=== PATIENT | female | born 1985 | race Asian ===

== ENCOUNTER → 2017-02-12 | Outpatient (CLI) | payer BC, OTHER | LOC: HPND 08:59 | PROVIDERS: ATTEND Family Medicine | DX: O26.842 Uterine size-date discrepancy, second trimester (principal) | CPT/HCPCS: 76805 ==

== ENCOUNTER → 2017-03-06 | Outpatient (CLI) | payer BC ==
[~2017-03-06] MED LIST: METR1TAB76 PO; TERC0.4C2 VAGINAL
== END ==
LOC: HPND 07:49
PROVIDERS: ATTEND Family Medicine
DX: O28.3 Abnormal ultrasonic finding on antenatal screening of mother (principal); O35.0XX0 Maternal care for (suspected) central nervous system malformation in fetus, not applicable or unspecified
CPT/HCPCS: 76811

== ENCOUNTER → 2017-04-03 | Outpatient (CLI) | payer BC ==
[~2017-04-03] MED LIST changes: -METR1TAB76 PO; +PREN29TA PO; -TERC0.4C2 VAGINAL
== END ==
LOC: HPND 07:37
PROVIDERS: ATTEND Family Medicine
DX: O28.0 Abnormal hematological finding on antenatal screening of mother (principal); O35.0XX0 Maternal care for (suspected) central nervous system malformation in fetus, not applicable or unspecified
CPT/HCPCS: 76816; 76825; 76827; 93325

== ENCOUNTER → 2017-05-01 | Outpatient (CLI) | payer BC, OTHER | LOC: HPND 07:53 | PROVIDERS: ATTEND Family Medicine | DX: O35.0XX0 Maternal care for (suspected) central nervous system malformation in fetus, not applicable or unspecified (principal); O28.0 Abnormal hematological finding on antenatal screening of mother | CPT/HCPCS: 76816 ==

== ENCOUNTER → 2017-05-28 | Outpatient (CLI) | payer BC, OTHER | LOC: HPND 12:51 | PROVIDERS: ATTEND Family Medicine | DX: O35.0XX0 Maternal care for (suspected) central nervous system malformation in fetus, not applicable or unspecified (principal) | CPT/HCPCS: 76816 ==

== ENCOUNTER 2017-06-18 22:18 | Inpatient (IN) | payer BC, OTHER ==
[~2017-06-18] VITALS: Ht 149.9 cm; Wt 49.0 kg
[2017-06-18 22:51] VITALS: BP 162/91; PULSE 67
[2017-06-18 22:55] VITALS: BP 158/93; PULSE 67
[2017-06-18 23:00] VITALS: RESP 18
[2017-06-18 23:14] VITALS: BP 156/91; PULSE 67
[2017-06-18] MEDS ORDERED: ONDANSETRON HCL 4 MG/2 ML VIAL IV PUSH ONE (23:30)
[2017-06-18 23:31] LABS: BACTERIA, URINE RARE /hpf; BILIRUBIN, URINE NEG (NEG); BLOOD, URINE SMALL (NEG); GLUCOSE,URINE NEG (NEG); KETONE, URINE NEG (NEG); NITRITE,URINE NEG (NEG); SQUAMOUS EPITHELIAL CELL URINE 2 /hpf (0-5); URINE COLOR LIGHT-YELLOW (YELLW/STRAW); URINE LEUKOCYTE ESTERASE NEG (NEG)
[2017-06-18 23:35] VITALS: BP 152/96; PULSE 71
--- NOTE | 2017-06-18 23:36 | PD ---
HPI Chief Complaint Cramping, increased BP Date Seen: Jun 18, 2017 Time Seen: 23:20 Travel History International Travel<30 Days: No Contact w/Intl Traveler<30Days: No Known Affected Area: No History of Present Illness HPI Patient is a 32 year old at 35 weeks and 2 days who presents to OB triage complaining of cramping since 21:00 this evening. She established care with Dr. Velazco at approximately 4 months gestation. She describes the cramping as a 4/10 pain, located along her lower abdomen, radiating to the back. The pain comes and goes q4-8 min, lasting for 1-2 minutes. She also reports vaginal pressure. Patient was found to have elevated blood pressures in OB triage. She was seen in the office earlier today, where she was found to have protein in her urine. Blood pressure was within normal limits at that time. Patient admits to a mild headache. She denies vision changes, right upper quadrant pain, nausea and vomiting. Weeks Gestation: 35 Para: 0 : 1 History Past Medical History Medical History: Denies Significant Hx Obstetric History Obstetric History G1 - current , no complications Past Surgical History Narrative Surgical Dental surgery - no complications with anaesthesia Family History Family History: Negative Social History Alcohol Use: No Tobacco Use: No Substance Abuse: No Allergies-Medications (Allergen,Severity, Reaction): Coded Allergies: Penicillins (Verified Allergy, Mild, rash, 04/30/17) Sulfa (Sulfonamide Antibiotics) (Verified Allergy, Mild, rash, 04/30/17) Home Meds Active Scripts Vit-Iron Carbonyl ( Plus Iron 29-1 mg) 29 Mg Iron-1 Mg Tab, 1 TAB PO DAILY for Nutritional Supplement, #30 TAB 11 Refills Prov:Neela Velazco MD 03/28/17 Review of Systems Except as stated in HPI: all other systems reviewed are Neg Physical Exam BP 158/93, 156/91, 152/96, 161/91 Narrative GENERAL: Well-nourished, well-developed patient. SKIN: Warm and dry. HEAD: Normocephalic and atraumatic. EYES: No scleral icterus. No injection or drainage. ENT: No nasal drainage noted. Mucous membranes pink. Airway patent. NECK: Supple, trachea midline. No JVD. CARDIOVASCULAR: Regular rate and rhythm without murmurs, gallops, or rubs. RESPIRATORY: Breath sounds equal bilaterally. No accessory muscle use. Gravid to 35 weeks size GENITOURINARY: Dilatation: Closed Effacement: Thick Membranes: Intact Uterine Contractions: None FHT's: Category: 1 Baseline: 140 Variability: Moderate Decels: None EXTREMITIES: No cyanosis or edema. BACK: Nontender without obvious deformity. No CVA tenderness. NEUROLOGICAL: Awake and alert. Motor and sensory grossly within normal limits. Five out of 5 muscle strength in all muscle groups. Normal speech. Data Data Vital Signs Reviewed: Yes Orders Orders Vital Signs (Adult) .ON ADMISSION (06/18/17 23:19) ^ Labor Status (06/18/17 23:19) Heart (06/18/17:) Urinalysis - C+S If Indicated (06/18/17:) ^ Non Stress Test (06/18/17:) ^ Hydration (06/18/17:) Cbc No Diff, Includes Plts (06/18/17 23:19) Comprehensive Metabolic Panel (06/18/17:) Uric Acid (06/18/17 23:19) Ondansetron Inj (Zofran Inj) (06/18/17 23:30) Labs Laboratory Tests Test 06/18/17 23:10 MDM Plan Patient is a 32 year old at 35 weeks and 2 days who presents to OB triage complaining of cramping since 21:00 this evening. She established care with Dr. Velazco at approximately 4 months gestation. Cramping pain likely Briscoe Pierson. Hypertension with proteinuria rule out preeclampsia. * Encourage PO hydration. * UA: light yellow, clear, pH 7, protein 100, glucose negative, ketones negative , occult blood small, nitrite negative, bilirubin negative, leukocyte esterase negative, bacteria rare; culture not indicated. * Urine Random Creatine 43 * Urine Random Total Protein 235 * Protein/Creatine Ration 5.47. * CBC wnl. * CMP wnl except Alk Phos 118 and Albumin 2.7. * Uric acid wnl. * Labetalol 100mg PO BID. * Admit for observation. Start 24 hr urine collection. Order Ultrasound. Consult MFM. Discussed with OB hospitalist. Diagnosis Diagnosis: Primary Impression: Hypertension affecting Additional Impression: Proteinuria affecting Lelo Godinez MD R1 Jun 18, 2017 23:36
[2017-06-18 23:52] LABS: HEMOGLOBIN 13.5 GM/DL (11.6-15.3); MEAN CELL VOLUME 84.1 FL (80.0-100.0); MEAN CORPUSCULAR HEMOGLOBIN 29.2 PG (27.0-34.0); MEAN CORPUSCULAR HGB CONC 34.7 % (32.0-36.0); MEAN PLATELET VOLUME 10.2 FL (7.0-11.0); PLATELET COUNT 154 TH/MM3 (150-450); RED BLOOD COUNT 4.64 MIL/MM3 (4.00-5.30); RED CELL DISTRIBUTION WIDTH 14.3 % (11.6-17.2); WHITE BLOOD COUNT 6.7 TH/MM3 (4.0-11.0)
[2017-06-19] VITALS (176 sets, daily range): BP systolic 105–149; BP diastolic 63–91; PULSE 62–100; RESP 14–18; TEMP 97.6–98.1; O2SAT 95–100
[2017-06-19 00:15] LABS: ALBUMIN 2.7 GM/DL (3.4-5.0); AST (GOT) 27 U/L (15-37); BICARBONATE 22.8 MEQ/L (21.0-32.0); BLOOD UREA NITROGEN 13 MG/DL (7-18); CALCIUM 8.6 MG/DL (8.5-10.1); CHLORIDE 106 MEQ/L (98-107); CREATININE 0.68 MG/DL (0.50-1.00); GLOMERULAR FILTRATION RATE 101 ML/MIN (>89); GLUCOSE,RANDOM 83 MG/DL (74-106); SODIUM (NA) 140 MEQ/L (136-145)
[2017-06-19 00:19] LABS: ALKALINE PHOSPHATASE 118 U/L (45-117); ALT (GPT) 27 U/L (10-53); TOTAL BILIRUBIN ADULT 0.2 MG/DL (0.2-1.0); TOTAL PROTEIN 7.1 GM/DL (6.4-8.2)
[2017-06-19] MEDS: LABETALOL HCL 100 MG TAB PO SCH ×3 (00:30→21:00)
[2017-06-19] MEDS ORDERED: ACETAMINOPHEN 325 MG TAB PO PRN (01:45)
[2017-06-19] MEDS ORDERED: SODIUM CHLORIDE 0.9% FLUSH 10 ML FLUSH IV FLUSH PRN ×2 (01:45→09:45)
--- NOTE | 2017-06-19 01:55 | HHI.HP ---
History & Physical H&P HPI Chief Complaint Cramping, increased BP Date Seen in ED Triage: Jun 18, 2017 Time Seen In ED Triage: 23:20 Date Admitted: Jun 19, 2017 Travel History International Travel<30 Days: No Contact w/Intl Traveler<30Days: No Known Affected Area: No History of Present Illness HPI Patient is a 32 year old at 35 weeks and 2 days who presents to OB triage complaining of cramping since 21:00 on 06/18. She established care with Dr. Velazco at approximately 4 months gestation. She describes the cramping as a 4/10 pain, located along her lower abdomen, radiating to the back. The pain comes and goes q4-8 min, lasting for 1-2 minutes. She also reports vaginal pressure. Patient was found to have elevated blood pressures in OB triage. She was seen in the office earlier that day, where she was found to have protein in her urine. Blood pressure was within normal limits at that time. Patient admits to a mild headache. She denies vision changes, right upper quadrant pain, nausea and vomiting. Weeks Gestation: 35 Para: 0 : 1 History Past Medical History Medical History: Denies Significant Hx Obstetric History Obstetric History G1 - current , no complications Past Surgical History Narrative Surgical Dental surgery - no complications with anaesthesia Family History Family History: Negative Social History Alcohol Use: No Tobacco Use: No Substance Abuse: No Allergies-Medications (Allergen,Severity, Reaction): Coded Allergies: Penicillins (Verified Allergy, Mild, rash, 04/30/17) Sulfa (Sulfonamide Antibiotics) (Verified Allergy, Mild, rash, 04/30/17) Home Meds Active Scripts Vit-Iron Carbonyl ( Plus Iron 29-1 mg) 29 Mg Iron-1 Mg Tab, 1 TAB PO DAILY for Nutritional Supplement, #30 TAB 11 Refills Prov:Neela Velazco MD 03/28/17 Review of Systems Except as stated in HPI: all other systems reviewed are Neg Physical Exam BP 158/93, 156/91, 152/96, 161/91, 149/89, 145/91, 151/95, 112/80, 143/75, 115/ 75 Narrative GENERAL: Well-nourished, well-developed patient. SKIN: Warm and dry. HEAD: Normocephalic and atraumatic. EYES: No scleral icterus. No injection or drainage. ENT: No nasal drainage noted. Mucous membranes pink. Airway patent. NECK: Supple, trachea midline. No JVD. CARDIOVASCULAR: Regular rate and rhythm without murmurs, gallops, or rubs. RESPIRATORY: Breath sounds equal bilaterally. No accessory muscle use. Gravid to 35 weeks size GENITOURINARY: Dilatation: Closed Effacement: Thick Membranes: Intact Uterine Contractions: None FHT's: Category: 1 Baseline: 140 Variability: Moderate Decels: None EXTREMITIES: No cyanosis or edema. BACK: Nontender without obvious deformity. No CVA tenderness. NEUROLOGICAL: Awake and alert. Motor and sensory grossly within normal limits. Five out of 5 muscle strength in all muscle groups. Normal speech. MDM Plan Patient is a 32 year old at 35 weeks and 2 days who presents to OB triage complaining of cramping since 21:00 on 06/18. She established care with Dr. Velazco at approximately 4 months gestation. Cramping pain likely Sharad Pierson. Hypertension with proteinuria rule out preeclampsia. * Encourage PO hydration. * UA: light yellow, clear, pH 7, protein 100, glucose negative, ketones negative , occult blood small, nitrite negative, bilirubin negative, leukocyte esterase negative, bacteria rare; culture not indicated. * Urine Random Creatine 43 * Urine Random Total Protein 235 * Protein/Creatine Ration 5.47. * CBC wnl. * CMP wnl except Alk Phos 118 and Albumin 2.7. * Uric acid wnl. * Labetalol 100mg PO BID. * Admit for observation. Start 24 hr urine collection. Order Ultrasound. Consult MFM. Discussed with OB hospitalist. Lelo Godinez MD R1 Jun 19, 2017 01:55
[2017-06-19] MEDS: MULTIVIT/MIN/PREN/FOL AC/IRON PRENATAL TAB PO SCH ×2 (09:00→09:45)
[2017-06-19] MEDS: SODIUM CHLORIDE 0.9% FLUSH 10 ML FLUSH IV FLUSH SCH ×3 (09:00→21:00)
[2017-06-19] MEDS ORDERED: MAGNESIUM SULFATE 4 GM PREMIX 100 ML IV ONE (09:45)
[2017-06-19] MEDS ORDERED: CALCIUM GLUCONATE 10% 1 GM/10 ML VIAL IV PUSH PRN (09:45)
[2017-06-19] MEDS ORDERED: ONDANSETRON HCL 4 MG/2 ML VIAL IV PUSH PRN (10:00)
[2017-06-19] MEDS: LACTATED RINGER'S 1000 ML INJ 1,000 ML IV SCH (10:53)
[2017-06-19] MEDS: BETAMETHASONE SOD PHOS/ACETATE SUSP 30 MG/5 ML VIAL IM SCH (10:54)
[2017-06-19] MEDS: MAGNESIUM SULFATE 40 GM PREMIX 1,000 ML IV SCH (10:56)
--- NOTE | 2017-06-19 11:09 | HHI.PR ---
Addendum to Inpatient Note Addendum Reason: Additional Documentation Additional Information Patient evaluated by MFM this morning, 06/19/17. Based on US, recommendations given to start magnesium for neuroprotection, give betamethasone x2, complete 24 hour urine, and schedule for Ceserean section tomorrow 06/20/17 after second dose of steroids for breach positioning. Patient counseled and agrees with plan. PCP, Dr. Velazco, updated. 1. IUP at 35 weeks -Continue routine antepartum care -Continue vitamin -Encouraged oral hydration -Clear liquid diet 2. Preeclampsia with IUGR on ultrasound -MFM consulted -Magnesium ordered with bolus, plan for 24 hours of coverage prior to for breech positioning -Betamethasone 2 ordered -Continue 24 hour urine collection DW: Dr. Warner, Ever Simmons MD R2 Jun 19, 2017 11:09
--- NOTE | 2017-06-19 15:52 | HHI.PR ---
Addendum to Inpatient Note Addendum Reason: Additional Documentation Additional Information Consult for Juaquin, Arielle Maternal Hx: 32 y/o AF, at 35 3/7 weeks gestation with induced hypertension, cramping and proteinuria. No report of cramping or contractions. Mother denies alcohol, tobacco or drug use. Had been receiving care with Dr Velazco from [facility]. Mother admitted to [facility] on 06/18/16, secondary to elevated blood pressure and cramping. Most recent ultrasound on 06/19/16 confirmed intrauterine at 35 3/7 weeks gestation with EDC of 07/21/17. Estimated weight of 2052 grams. No maternal temperature noted since admission. Maternal Labs: A+, Rubella immune, RPR NR, GBS unknown, Hepatitis B negative, HIV NR. Maternal Meds: Magnesium Sulfate, PNV, [id number], Betamethasone on 06/19/16 at ~ 10:45am. Social: Marital status: single; Resides locally Family Hx: Mother reports no genetic or inherited conditions. Maternal Management: Magnesium sulfate for neuro protection. Betamethasone x 2 doses C/section secondary to breech presentation [facility] consult Substance Abuse: Denies Discussion: Nurse Practitioner met with mother and close friend regarding the lilekely delivery at 35 4/7weeks gestation secondary to elevated blood pressure, proteinuria and breech presentation. This consultation included generalized care of the baby in the NICU, common problems and complications if delivered at this time. The mother states that she was told by her DrDaisy that she will have a c/section sometime tomorrow after 2nd dose of Betamethasone was given. MOTOR VEHICLE ESCORT DRIVER discussed with mother the possible initial resuscitation and stabilization of the infant in the delivery room. Also included in this review the admission process to the NICU, including possible procedures such as intubation and placement of peripheral IV. Additionally, there was a discussion of the disease processes that may affect an infant of this gestation, including but not limited to respiratory distress, infection and nutritional concerns. Discussion detailed various forms of respiratory support for immature lungs including use of surfactant, nasal cannula and CPAP. Discussion focused on CPAP support as most commonly needed for an of this gestation. There was a review of nutritional support challenges including IV and gavage feeding. There was discussion regarding possible feeding difficulties. Breast feeding and early breast milk pumping was strongly encouraged. Explained that infant is at risk for hyperbilirubinemia and may require treatment with phototherapy. Support systems in place at [facility] were reviewed and included , Case Management and Ministry which the family may utilize. Expected discharge would likely occur closer to the due date if the has an uncomplicated hospitalization. Greater than 50% of the consultation time was spent with the patient. Patty Cole Jun 19, 2017 15:52
[2017-06-20] VITALS (192 sets, daily range): BP systolic 110–135; BP diastolic 50–90; PULSE 73–100; RESP 14–18; TEMP 97.6–98.8; O2SAT 95–100
[2017-06-20 07:10] LABS: CREATININE 24 HOUR, URINE 0.94 GM/24HR (0.63-2.50)
[2017-06-20] MEDS: SODIUM CHLORIDE 0.9% FLUSH 10 ML FLUSH IV FLUSH SCH ×3 (09:00→21:00)
[2017-06-20] MEDS: MULTIVIT/MIN/PREN/FOL AC/IRON PRENATAL TAB PO SCH ×2 (09:00)
[2017-06-20] MEDS: LABETALOL HCL 100 MG TAB PO SCH (10:12)
[2017-06-20] MEDS: BETAMETHASONE SOD PHOS/ACETATE SUSP 30 MG/5 ML VIAL IM SCH (10:12)
[2017-06-20] MEDS: MAGNESIUM SULFATE 40 GM PREMIX 1,000 ML IV SCH ×2 (10:16→18:24)
[2017-06-20] MEDS: LACTATED RINGER'S 1000 ML INJ 1,000 ML IV SCH ×3 (10:21→21:25)
[2017-06-20] MEDS ORDERED: OXYTOCIN 10 UNIT/ML AMP IV ONE (12:00)
[2017-06-20] MEDS ORDERED: LACTATED RINGER'S 1000 ML INJ 1,000 ML IV ONE ×2 (12:00→14:15)
[2017-06-20] MEDS ORDERED: DEXAMETHASONE SOD PHOS 4 MG/ML VIAL IV ONE (12:00)
[2017-06-20] MEDS ORDERED: ePHEDrine/NS 25 MG/5 ML SYRINGE IV ONE (12:00)
[2017-06-20] MEDS ORDERED: ONDANSETRON HCL 4 MG/2 ML VIAL IV ONE (12:00)
[2017-06-20] MEDS ORDERED: MORPHINE SULFATE PF 5 MG/10 ML VIAL ONE (13:26)
--- NOTE | 2017-06-20 13:58 | HHI.FPPN ---
Addendum to progress note ADDENDUM Reason for addendum: Additonal documentation Additional information Patient was seen by Dr. Hutson who discussed the scheduled for the afternoon. Patient expressed understanding and agreement with the plan. A bedside ultrasound was performed which confirmed breech position. Plan remains for at 2pm today 06/20/2017. Discussed with Neela Parsons MD Jun 20, 2017 13:58
[2017-06-20] MEDS ORDERED: LACTATED RINGER'S 1000 ML INJ 1,000 ML IV SCH (14:45)
[2017-06-20] MEDS ORDERED: CLINDAMYCIN INJ 900 MG in SODIUM CHLORIDE 0.9% INJ 100 ML IV SCH (15:00)
[2017-06-20] MEDS ORDERED: CLINDAMYCIN PHOS 600 MG/4 ML VIAL ONE (15:21)
[2017-06-20] MEDS ORDERED: CITRIC ACID-SODIUM CITRATE LIQ 30 ML UDC PO SCH (15:30)
[2017-06-20] MEDS ORDERED: CARBOPROST TROMETHAMINE 250 MCG/ML VIAL ONE (15:48)
[2017-06-20] MEDS ORDERED: MISOPROSTOL 200 MCG TAB ONE (15:54)
[2017-06-20] MEDS ORDERED: SODIUM CHLORIDE 0.9% FLUSH 10 ML FLUSH IV FLUSH PRN (17:00)
[2017-06-20] MEDS ORDERED: oxyCODONE/ACETAMINOPHEN 5 MG/325 MG TAB PO PRN (17:00)
[2017-06-20] MEDS ORDERED: ONDANSETRON HCL 4 MG/2 ML VIAL IV PUSH PRN (17:00)
[2017-06-20] MEDS ORDERED: CALCIUM GLUCONATE 10% 1 GM/10 ML VIAL IV PUSH PRN (17:00)
[2017-06-20] MEDS ORDERED: OXYTOCIN 30 UNITS-500ML PREMIX 500 ML IV ONE (17:00)
--- NOTE | 2017-06-20 17:11 | PD.OB.DELI ---
Procedure Note Section Procedure Pre Op Diagnosis: (1) Preeclampsia (2) Proteinuria affecting (3) Hypertension affecting Post Op Diagnosis: (1) Preeclampsia (2) Proteinuria affecting (3) Hypertension affecting Performed by Wade Hutson Procedure: Primary Low Transverse Sec Indication for delivery: Other Previous condition: None Informed consent obtained: For procedure Anesthesia: Spinal Medication prior to procedure: As documented in eMAR Monitoring during procedure: Blood pressure monitoring, quality assurance monitor body Sterile preparation: In usual fashion Position: Supine with wedge to left side Operative Features Skin Incision: Transverse Uterine Incision: Low transverse w/knife / blunt ext Membranes Ruptured: Artificially Presentation: Breech Delivery date: Jun 20, 2017 Delivery time: 17:01 Delivery of : Uneventful : Female One Minute : 9 Five Minute : 9, 10 Weight: 1790 Status of : Viable Placenta delivered: Intact Medications: Antibiotics Estimated blood loss: 500cc Procedure tolerated: Well Maternal Condition: Guarded Condition: Stable Procedure in detail pt. taken to or w/ ivf running. pt. was identified and prepped and draped in dorsal supine w/ leftward tilt. pfan incision performed and carried down to underlying fascia. fascia inised in midline and extended sharply. martha clamps used to grasp superior aspect of fascial incision and underlying muscles disceted sharply and bluntly. the rectus muscle in midline and peritoneum entered bluntly. this incision was extended superiorly and inferiorly w/ good visualization of bladder. lower uterine segment was then incised in transverse fashion and extended bluntly. breech delivered w/ o diff or trauma. cord doubly clamped and cut. the was handed to the waiting resc team. the placenta was then delivered. uterus exteriorized and cleared of clots and debris. the uterine incision was closed in 2 layers w/o diff. incision was hemostatic and bladder falp closed w/ plain gut suture. the uterus was returned to the abdomen. the pelvis was irrigated. the pelvis was then cleared of all clots and debris. the peritoneum was then closed in a running fashion. subfascial tissues were noted hemostatic and the rectus fascia was closed in a running fashion. subcutic tissues hemostatic. gandhi closed with patricio. sponge, lap and needle counts were correct x 2. pt. received clindamycin prior to procedure and transferred to recovery in stable condition. Wade Hutson Jr., MD Jun 20, 2017 17:11
[2017-06-20] MEDS ORDERED: EPIDURAL-NO SYSTEMIC NARCOTICS PRN (20:00)
[2017-06-20] MEDS ORDERED: EPIDURAL-DO NOT ADMINISTER ANTICOAGULANTS PRN (20:00)
[2017-06-20] MEDS ORDERED: EPIDURAL-DIPHENHYDRAMINE HCL 50 MG CAP PO PRN (20:00)
[2017-06-20] MEDS ORDERED: EPIDURAL-DIPHENHYDRAMINE HCL 50 MG/ML VIAL IV PUSH PRN (20:00)
[2017-06-20] MEDS ORDERED: EPIDURAL-NALOXONE HCL 0.4 MG/ML AMP IV PUSH PRN (20:00)
[2017-06-21] VITALS (18 sets, daily range): BP systolic 99–132; BP diastolic 55–82; PULSE 62–76; RESP 15–18; TEMP 98.2–98.8; O2SAT 100
[2017-06-21] MEDS ORDERED: OXYTOCIN 30 UNITS-500ML PREMIX 500 ML IV PRN (03:00)
[2017-06-21 06:19] LABS: BASOPHIL % 0.1 % (0.0-2.0); HEMATOCRIT 32.6 % (35.0-46.0); HEMOGLOBIN 11.2 GM/DL (11.6-15.3); LYMPH % 5.1 % (9.0-44.0); LYMPHOCYTE # 0.6 TH/MM3 (1.0-4.8); MEAN CELL VOLUME 85.2 FL (80.0-100.0); MEAN CORPUSCULAR HEMOGLOBIN 29.1 PG (27.0-34.0); MEAN CORPUSCULAR HGB CONC 34.2 % (32.0-36.0); MEAN PLATELET VOLUME 10.3 FL (7.0-11.0); MONO % 5.8 % (0.0-8.0); MONOCYTE # 0.7 TH/MM3 (0-0.9); PLATELET COUNT 171 TH/MM3 (150-450); RED BLOOD COUNT 3.83 MIL/MM3 (4.00-5.30); RED CELL DISTRIBUTION WIDTH 14.6 % (11.6-17.2); WHITE BLOOD COUNT 11.3 TH/MM3 (4.0-11.0)
[2017-06-21 06:34] LABS: ALBUMIN 2.2 GM/DL (3.4-5.0); BICARBONATE 26.6 MEQ/L (21.0-32.0); CALCIUM 6.8 MG/DL (8.5-10.1); CREATININE 0.75 MG/DL (0.50-1.00)
[2017-06-21 06:51] LABS: TOTAL BILIRUBIN ADULT 0.2 MG/DL (0.2-1.0); TOTAL PROTEIN 5.9 GM/DL (6.4-8.2)
--- NOTE | 2017-06-21 07:02 | HHI.OB ---
Subjective Post Operative Day: 1 Remarks Postoperative day #1. AFVSS overnight. Pain is managable. She only feels pain when she moves. Incision clean, dry, and intact, not draining. Lochia less than a period. Denies dysuria. No breast tenderness. She is feeding the baby via breast-milk and formula. Appetite good. No nausea or vomiting. Positive flatus. Negative bowel movement. Has not yet ambulated because she is on magnesium with a tsai catether. Denies fever, chills, cough, shortness of breath, chest pain, and calf pain. Otherwise, she is doing well this morning and has no other complaints. Objective Vitals/I&O Vital Signs Date Time Temp Pulse Resp B/P (MAP) Pulse Ox O2 Delivery O2 Flow Rate FiO2 06/20/17 14:40 92 100 06/20/17 14:35 84 100 06/20/17 14:30 86 100 06/20/17 14:25 78 99 06/20/17 14:20 79 100 06/20/17 14:15 80 100 06/20/17 14:05 87 100 06/20/17 14:00 81 127/82 (97) 100 06/20/17 13:55 78 100 06/20/17 13:50 86 100 06/20/17 13:45 82 100 06/20/17 13:40 80 100 06/20/17 13:35 87 100 06/20/17 13:30 82 100 06/20/17 13:25 81 100 06/20/17 13:20 81 100 06/20/17 13:15 83 100 06/20/17 13:10 82 100 06/20/17 13:05 83 100 06/20/17 13:00 82 116/77 (90) 100 06/20/17 13:00 16 06/20/17 12:55 83 100 06/20/17 12:50 83 100 06/20/17 12:45 84 100 06/20/17 12:40 83 100 06/20/17 12:35 85 100 06/20/17 12:30 88 100 06/20/17 12:25 85 100 06/20/17 12:20 90 100 06/20/17 12:15 84 100 06/20/17 12:10 88 100 06/20/17 12:05 88 100 3/8/18 12:00 88 126/82 (97) 99 18 11:55 93 100 18 11:50 88 100 06/20/17 11:45 85 06/20/17 11:45 85 100 06/20/17 11:40 84 18 11:40 84 99 06/20/17 11:35 85 100 06/20/17 11:35 86 06/20/17 11:30 81 99 06/20/17 11:30 82 06/20/17 11:25 83 06/20/17 11:25 82 100 06/20/17 11:20 83 06/20/17 11:20 83 99 06/20/17 11:15 89 06/20/17 11:15 93 99 06/20/17 11:10 86 98 06/20/17 11:10 85 06/20/17 11:05 86 99 06/20/17 11:05 83 06/20/17 11:00 88 110/69 (83) 97 06/20/17 11:00 89 06/20/17 11:00 91 06/20/17 10:22 16 06/20/17 10:20 94 100 06/20/17 10:20 93 06/20/17 10:15 90 100 06/20/17 10:15 92 06/20/17 10:10 84 06/20/17 10:10 84 100 06/20/17 10:05 87 100 06/20/17 10:05 88 06/20/17 10:00 87 06/20/17 10:00 88 128/80 (96) 100 06/20/17 10:00 89 06/20/17 09:55 91 18 09:55 95 06/20/17 09:55 100 06/20/17 09:50 92 18 09:50 91 18 09:50 100 18 09:45 100 18 09:45 89 06/20/17 09:45 87 18 09:40 100 06/20/17 09:40 90 18 09:40 91 06/20/17 09:35 100 06/20/17 09:35 91 06/20/17 09:35 91 3/8/18 09:30 94 3/8/18 09:30 100 18 09:30 91 18 09:25 100 18 09:25 87 18 09:25 88 06/20/17 09:20 86 18 09:20 100 18 09:20 89 06/20/17 09:15 93 06/20/17 09:15 100 06/20/17 09:15 93 06/20/17 09:10 95 06/20/17 09:10 95 06/20/17 09:10 100 06/20/17 09:05 96 06/20/17 09:05 94 06/20/17 09:05 100 06/20/17 09:00 93 135/90 (105) 06/20/17 09:00 100 06/20/17 09:00 89 06/20/17 09:00 94 06/20/17 08:55 94 100 06/20/17 08:55 97 06/20/17 08:50 99 100 06/20/17 08:50 100 06/20/17 08:45 90 06/20/17 08:45 89 100 06/20/17 08:40 86 100 06/20/17 08:40 87 06/20/17 08:35 89 100 06/20/17 08:35 89 06/20/17 08:30 85 06/20/17 08:30 84 100 06/20/17 08:25 86 100 06/20/17 08:25 87 06/20/17 08:20 84 100 06/20/17 08:20 83 06/20/17 08:15 85 127/88 (101) 06/20/17 08:15 84 06/20/17 08:10 89 06/20/17 08:05 96 06/20/17 08:00 98.1 06/20/17 08:00 88 17 126/90 (102) 06/20/17 08:00 92 06/20/17 07:55 91 06/20/17 07:50 88 06/20/17 07:45 92 06/20/17 07:40 88 06/20/17 07:35 83 06/20/17 07:30 87 06/20/17 07:25 84 06/20/17 07:20 88 06/20/17 07:15 92 06/20/17 07:10 90 06/20/17 07:05 89 06/20/17 07:00 84 110/89 (96) 06/20/17 07:00 87 Result Diagram: 06/21/1742806/21/17428 Objective Remarks GENERAL: Well-nourished, well-developed patient. CARDIOVASCULAR: Regular rate and rhythm without murmurs, gallops, or rubs. RESPIRATORY: Breath sounds equal bilaterally. No accessory muscle use. ABDOMEN/GI: Abdomen soft, non-tender, bowel sounds present. Incision: Clean, dry and intact. Fundus: Firm, non-tender below umbilicus. GENITOURINARY: Light to moderate bleeding. EXTREMITIES: Moderate edema, non-tender, without signs of DVT. Medications and IVs Current Medications Medications (Trade) Dose Ordered Sig/Marco Route Start Time Stop Time Status Last Admin Lactated Ringer's 1,000 ml @ 100 mls/hr Q10H IV 06/20/17 21:59 06/21/17 17:58 06/20/17 21:25 Oxytocin 500 ml @ 100 mls/hr UNSCH X1 PRN IV 06/21/17 03:00 06/22/17 02:59 (NS Flush) 2 ml BID IV FLUSH 06/20/17 21:00 (NS Flush) 2 ml UNSCH PRN IV FLUSH 06/20/17 17:00 (Motrin) 600 mg Q6H PRN PO 06/20/17 17:00 (Percocet 5-325 Mg) 1 tab Q4H PRN PO 06/20/17 17:00 (Percocet 5-325 Mg) 2 tab Q4H PRN PO 06/20/17 17:00 (Elle-Colace) 2 tab Q12H PRN PO 06/20/17 17:00 (M-M-R Ii Inj) 0.5 ml ONCE ONCE SQ 06/21/17 16:00 06/21/17 16:01 (Boostrix Inj) 0.5 ml ONCE ONCE IM 06/21/17 16:00 06/21/17 16:01 (Zofran Inj) 4 mg Q6H PRN IV PUSH 06/20/17 17:00 Magnesium Sulfate 1,000 ml @ 50 mls/hr Q20H IV 06/20/17 17:00 06/20/17 18:24 (Calcium Gluconate Inj) 1 gm UNSCH PRN IV PUSH 06/20/17 17:00 Miscellaneous Information NO SYSTEMIC NARCOTICS TO BE GIVEN FO... UNSCH PRN .XX 06/20/17 20:00 06/21/17 19:59 (Narcan Inj) 0.4 mg UNSCH PRN IV PUSH 06/20/17 20:00 06/21/17 19:59 (Benadryl Inj) 25 mg Q6H PRN IV PUSH 06/20/17 20:00 06/21/17 19:59 (Benadryl) 50 mg Q6H PRN PO 06/20/17 20:00 06/21/17 19:59 Miscellaneous Information ALL NURSING DEPARTMENTS UNSCH PRN .XX 06/20/17 20:00 06/21/17 19:59 Assessment/Plan Problem List: (1) Preeclampsia ICD Codes: O14.90 - Unspecified pre-eclampsia, unspecified trimester (2) Hypertension affecting ICD Codes: O16.9 - Unspecified maternal hypertension, unspecified trimester Status: Acute (3) delivery delivered ICD Codes: O82 - Encounter for delivery without indication (4) Proteinuria affecting ICD Codes: O12.10 - Gestational proteinuria, unspecified trimester Status: Acute Assessment and Plan 32 y/o who is POD# 1 s/p CS at 35 weeks for preeclampsia, IUGR, and decreased amniotic fluid. 1. Cesarian Delivery -Continue routine care -Percocet and Motrin PRN pain -Pericolase PRN for constipation -Encouraged OOB. Advised pelvic rest for 6 wks -Will need a follow-up appointment within 1 week for incision check -Re: ctrl - abstinence - she is not currently in a relationship 2. Preclampsia -BPs have been stable ranging between 99-132 systolic and 65-82 diastolic overnight -Labs this morning do not show signs of liver dysfunction, platelets in acceptable range -Continue magnesium until 24 hours after cesarian delivery -Check DTRs -Decrease fluids to magnesium rate of 25mls/hr and LR rate of 50mls/hr -Monitor Is and Os -Monitor for pulmonary edema Seen and examined with Neela Parsons MD Jun 21, 2017 07:02
[2017-06-21 07:05] LABS: CALCIUM-PROTEIN CORRECTED 7.4 MG/DL (8.5-10.1)
[2017-06-21] MEDS ORDERED: CALCIUM GLUCONATE 500 MG TAB PO SCH (09:00)
[2017-06-21] MEDS: SODIUM CHLORIDE 0.9% FLUSH 10 ML FLUSH IV FLUSH SCH (09:00)
[2017-06-21] MEDS: LACTATED RINGER'S 1000 ML INJ 1,000 ML IV SCH (09:19)
[2017-06-21] MEDS: IBUPROFEN 600 MG TAB PO PRN (12:08)
[2017-06-21] MEDS: MAGNESIUM SULFATE 40 GM PREMIX 1,000 ML IV SCH (13:00)
[2017-06-21] MEDS ORDERED: MEASLES, MUMPS, RUBELLA VACCINE 0.5 ML VIAL SQ ONE (16:00)
[2017-06-21] MEDS ORDERED: DIPHTH/TETANUS/ACEL PERTUSSIS (BOOSTER) 0.5 ML VIAL/PFS IM ONE (16:00)
[2017-06-21] MEDS: oxyCODONE/ACETAMINOPHEN 5 MG/325 MG TAB PO PRN (17:20)
[2017-06-21] MEDS: DOCUSATE SODIUM 50 MG/SENNA 8.6 MG TAB PO PRN (17:20)
[2017-06-22 02:00] VITALS: BP 136/76; PULSE 68; RESP 16; TEMP 98.2
--- NOTE | 2017-06-22 06:04 | HHI.OB ---
Subjective Post Operative Day: 2 Remarks Pt seen and examined this morning. Postoperative day # 2 AFVSS overnight. Incision not draining. Decreased lochia. Denies dysuria. No breast tenderness. She is feeding the baby via bottle. Appetite good. No nausea or vomiting. Patient has not yet had a BM, but does endorse bowel gas. Ambulating well. Denies calf pain or shortness of breath. Patient endorses increased incisional pain, however she has refused pain medication since late yesterday afternoon. Discussed with patient importance of pain control for appropriate healing as well as increased ambulation. Otherwise she has no complaints at this time. (Ever Padilla MD R2) Remarks Patient seen and evaluated with resident under direct supervision, agree with assessment and plan. (Emanuel Guadarrama MD) Objective Vitals/I&O Vital Signs Date Time Temp Pulse Resp B/P (MAP) Pulse Ox O2 Delivery O2 Flow Rate FiO2 06/22/17 02:00 98.2 68 16 136/76 (96) 06/21/17 20:40 98.2 73 16 06/21/17 20:40 131/74 (93) 06/21/17 16:00 98.8 06/21/17 16:00 16 06/21/17 16:00 70 117/65 (82) 06/21/17 15:00 16 06/21/17 15:00 69 116/73 (87) 06/21/17 14:00 16 06/21/17 14:00 70 112/73 (86) 06/21/17 13:00 16 06/21/17 13:00 66 122/72 (89) 06/21/17 12:00 66 16 123/68 (86) 06/21/17 11:00 15 06/21/17 11:00 64 115/71 (86) 06/21/17 10:00 68 18 102/55 (71) 06/21/17 09:00 16 06/21/17 09:00 64 107/60 (76) 06/21/17 08:00 70 119/77 (91) 06/21/17 08:00 98.3 16 100 06/21/17 07:00 62 109/68 (82) (Ever Padilla MD R2) Result Diagram: 06/21/17 0429 06/21/17 0429 Objective Remarks GENERAL: Well-nourished, well-developed patient. CARDIOVASCULAR: Regular rate and rhythm without murmurs, gallops, or rubs. RESPIRATORY: Breath sounds equal bilaterally. No accessory muscle use. ABDOMEN/GI: Abdomen soft, non-tender, bowel sounds present. Incision: Clean, dry and intact. Fundus: Firm, non-tender below umbilicus. GENITOURINARY: Light to moderate bleeding. EXTREMITIES: Moderate edema, non-tender, without signs of DVT. Reflexes within normal limits. Medications and IVs Current Medications Medications (Trade) Dose Ordered Sig/Marco Route Start Time Stop Time Status Last Admin (NS Flush) 2 ml BID IV FLUSH 06/20/17 21:00 (NS Flush) 2 ml UNSCH PRN IV FLUSH 06/20/17 17:00 (Motrin) 600 mg Q6H PRN PO 06/20/17 17:00 06/21/17 12:08 (Percocet 5-325 Mg) 1 tab Q4H PRN PO 06/20/17 17:00 06/21/17 17:20 (Percocet 5-325 Mg) 2 tab Q4H PRN PO 06/20/17 17:00 (Elle-Colace) 2 tab Q12H PRN PO 06/20/17 17:00 06/21/17 17:20 (Zofran Inj) 4 mg Q6H PRN IV PUSH 06/20/17 17:00 Magnesium Sulfate 1,000 ml @ 50 mls/hr Q20H IV 06/20/17 17:00 06/20/17 18:24 (Calcium Gluconate Inj) 1 gm UNSCH PRN IV PUSH 06/20/17 17:00 (Ever Padilla MD R2) Assessment/Plan Problem List: (1) Preeclampsia ICD Codes: O14.90 - Unspecified pre-eclampsia, unspecified trimester Qualifiers: Qualified Codes: O14.93 - Unspecified pre-eclampsia, third trimester (2) Hypertension affecting ICD Codes: O16.9 - Unspecified maternal hypertension, unspecified trimester Status: Acute (3) delivery delivered ICD Codes: O82 - Encounter for delivery without indication (4) Proteinuria affecting ICD Codes: O12.10 - Gestational proteinuria, unspecified trimester Status: Acute Assessment and Plan 32 y/o who is POD# 2 s/p CS at 35 weeks for preeclampsia, IUGR, and decreased amniotic fluid. 1. Cesarian Delivery -Continue routine care -Percocet and Motrin PRN pain -Pericolase PRN for constipation -Encouraged OOB. Advised pelvic rest for 6 wks -Will need a follow-up appointment within 1 week for incision check -Re: ctrl - abstinence - she is not currently in a relationship 2. Preclampsia -BPs have been stable ranging between 102-136 systolic and 55-77 diastolic overnight -Labs this morning do not show signs of liver dysfunction -Mg discontinued, repeat magnesium 12/24/17 with CMP -Check DTRs -Monitor Is and Os -Monitor for pulmonary edema DW: Dr. Guadarrama Discharge Planning Tomorrow (Ever Padilla MD R2) Ever Padilla MD R2 Jun 22, 2017 06:04 Emanuel Guadarrama MD Jun 24, 2017 07:31
[2017-06-22 06:09] LABS: ALBUMIN 2.2 GM/DL (3.4-5.0); AST (GOT) 35 U/L (15-37); BICARBONATE 27.2 MEQ/L (21.0-32.0); BLOOD UREA NITROGEN 15 MG/DL (7-18); CALCIUM 7.5 MG/DL (8.5-10.1); CHLORIDE 106 MEQ/L (98-107); CREATININE 0.58 MG/DL (0.50-1.00); GLOMERULAR FILTRATION RATE 121 ML/MIN (>89); GLUCOSE,RANDOM 82 MG/DL (74-106); SODIUM (NA) 140 MEQ/L (136-145)
[2017-06-22 06:11] LABS: ALKALINE PHOSPHATASE 77 U/L (45-117); ALT (GPT) 33 U/L (10-53); TOTAL BILIRUBIN ADULT 0.2 MG/DL (0.2-1.0); TOTAL PROTEIN 6.1 GM/DL (6.4-8.2)
[2017-06-22] MEDS: oxyCODONE/ACETAMINOPHEN 5 MG/325 MG TAB PO PRN ×3 (06:41→20:59)
[2017-06-22] MEDS: IBUPROFEN 600 MG TAB PO PRN ×3 (06:41→21:00)
[2017-06-22 08:00] VITALS: BP 145/84; PULSE 69; RESP 18; TEMP 98.2
[2017-06-22] MEDS: DOCUSATE SODIUM 50 MG/SENNA 8.6 MG TAB PO PRN (13:30)
[2017-06-22 15:00] VITALS: BP 154/85; PULSE 64; RESP 20; TEMP 98.2
[2017-06-22 21:00] VITALS: BP 148/86; PULSE 66; RESP 16; TEMP 98.4
[2017-06-23 05:36] LABS: ALBUMIN 2.2 GM/DL (3.4-5.0); ALKALINE PHOSPHATASE 67 U/L (45-117); ALT (GPT) 66 U/L (10-53); AST (GOT) 50 U/L (15-37); BICARBONATE 23.4 MEQ/L (21.0-32.0); CALCIUM 8.4 MG/DL (8.5-10.1); CHLORIDE 107 MEQ/L (98-107); CREATININE 0.48 MG/DL (0.50-1.00); GLOMERULAR FILTRATION RATE 151 ML/MIN (>89); GLUCOSE,RANDOM 85 MG/DL (74-106); MAGNESIUM 1.7 MG/DL (1.5-2.5); SODIUM (NA) 140 MEQ/L (136-145); TOTAL BILIRUBIN ADULT 0.2 MG/DL (0.2-1.0); TOTAL PROTEIN 5.9 GM/DL (6.4-8.2)
[2017-06-23 05:39] LABS: BLOOD UREA NITROGEN 13 MG/DL (7-18)
[2017-06-23 07:27] VITALS: BP 147/97; PULSE 61; RESP 16; TEMP 98
[2017-06-23] MEDS: oxyCODONE/ACETAMINOPHEN 5 MG/325 MG TAB PO PRN ×2 (07:58→12:41)
[2017-06-23] MEDS: IBUPROFEN 600 MG TAB PO PRN ×2 (07:58→13:35)
[2017-06-23] MEDS ORDERED: NIFEdipine 30 MG SUSTAINED RELEASE TAB PO ONE (08:15)
[2017-06-23] MEDS ORDERED: IBUP-232 PO (08:36)
[2017-06-23] MEDS ORDERED: PERI PO (08:36)
[2017-06-23] MEDS ORDERED: OXYC1TAB63 PO (08:36)
--- NOTE | 2017-06-23 08:38 | HHI.DCPOC ---
Discharge Care Plan Diagnosis: (1) delivery delivered (2) Preeclampsia Report Symptoms to Your Doctor -Temperature above 100.5 degrees -Redness, of incision or excessive or foul smelling drainage -Unusual pain or calf pain -Increased vaginal bleeding -Painful or difficulty urinating -Feelings of extreme sadness or anxiety after 2 weeks Goals to Promote Your Health * To prevent worsening of your condition and complications * To maintain your health at the optimal level Directions to Meet Your Goals Take your medications as prescribed Follow your dietary instruction Follow activity as directed Ensure plenty of rest for recovery Drink fluids for hydration Keep your appointments as scheduled Take your immunizations and boosters as scheduled If your symptoms worsen call your PCP, if no PCP go to Urgent Care Center or Emergency Room Smoking is Dangerous to Your Health. Avoid second hand smoke Call the 24-hour crisis hotline for domestic abuse at Ward Mckeon MD Jun 23, 2017 08:38
[2017-06-23 08:43] VITALS: BP 117/69; PULSE 68; RESP 17
--- NOTE | 2017-06-23 08:55 | HHI.OB ---
Subjective Remarks 32 year old s/p C/S at 35/4 wks gestation, POD 3. AFVSS. Patient reports she is feeling well. Bleeding is decreasing and pain is well-controlled. She is breast feeding and bonding well with baby. Ambulating without difficulties. She is tolerating a diet without nausea or vomiting. She has had a bowel movement. She has passed gas. Denies chest pain, dysuria, shortness of breath, or calf pain. Objective Vitals/I&O Vital Signs Date Time Temp Pulse Resp B/P (MAP) Pulse Ox O2 Delivery O2 Flow Rate FiO2 06/23/17 08:43 68 17 117/69 (85) 06/23/17 07:27 61 147/97 (114) 06/23/17 07:27 98.0 16 06/22/17 21:00 98.4 66 16 148/86 (106) 06/22/17 15:00 98.2 64 20 154/85 (108) Result Diagram: 06/21/17 0429 06/23/17 0453 Objective Remarks GENERAL: Well-nourished, well-developed patient. CARDIOVASCULAR: Regular rate and rhythm without murmurs, gallops, or rubs. RESPIRATORY: Breath sounds equal bilaterally. No accessory muscle use. ABDOMEN/GI: Abdomen soft, non-tender, bowel sounds present. Incision: Clean, dry and intact. Aj in place. Fundus: Firm, non-tender below umbilicus. GENITOURINARY: Light to moderate bleeding. EXTREMITIES: Moderate edema, non-tender, without signs of DVT. Reflexes within normal limits. Medications and IVs Current Medications Medications (Trade) Dose Ordered Sig/Marco Route Start Time Stop Time Status Last Admin (NS Flush) 2 ml BID IV FLUSH 06/20/17 21:00 (NS Flush) 2 ml UNSCH PRN IV FLUSH 06/20/17 17:00 (Motrin) 600 mg Q6H PRN PO 06/20/17 17:00 06/23/17 07:58 (Percocet 5-325 Mg) 1 tab Q4H PRN PO 06/20/17 17:00 06/23/17 07:58 (Percocet 5-325 Mg) 2 tab Q4H PRN PO 06/20/17 17:00 (Elle-Colace) 2 tab Q12H PRN PO 06/20/17 17:00 06/22/17 13:30 (Zofran Inj) 4 mg Q6H PRN IV PUSH 06/20/17 17:00 Magnesium Sulfate 1,000 ml @ 50 mls/hr Q20H IV 06/20/17 17:00 06/20/17 18:24 (Calcium Gluconate Inj) 1 gm UNSCH PRN IV PUSH 06/20/17 17:00 Assessment/Plan Problem List: (1) Preeclampsia ICD Codes: O14.90 - Unspecified pre-eclampsia, unspecified trimester Qualifiers: Qualified Codes: O14.93 - Unspecified pre-eclampsia, third trimester (2) Hypertension affecting ICD Codes: O16.9 - Unspecified maternal hypertension, unspecified trimester Status: Acute (3) delivery delivered ICD Codes: O82 - Encounter for delivery without indication (4) Proteinuria affecting ICD Codes: O12.10 - Gestational proteinuria, unspecified trimester Status: Acute Assessment and Plan 32 y/o who is POD# 2 s/p CS at 35 weeks for preeclampsia, IUGR, and decreased amniotic fluid. 1. Cesarian Delivery -Continue routine care -Percocet and Motrin PRN pain -Pericolase PRN for constipation -Encouraged OOB. Advised pelvic rest for 6 wks -Will need a follow-up appointment within 1 week for incision check -Re: ctrl - abstinence - she is not currently in a relationship 2. Preclampsia -BPs slightly elevated overnight but returned to normal after receiving pain medication for headache -Monitor VS Q4H until the afternoon. If BP not elevated, can discharge without BP medication and see in office for BP check this week. -Labs this morning do not show signs of liver dysfunction Medically stable for discharge today +/- BP medication Ward Mckeon MD Jun 23, 2017 08:55
[2017-06-23 12:41] VITALS: BP 154/97; PULSE 69; RESP 18; TEMP 98
[2017-06-23 13:25] VITALS: BP_SYST 144; BP_SYST 159; BP_DIAS 92; BP_DIAS 97; PULSE 61; PULSE 78; RESP 18
[2017-06-23 16:05] VITALS: BP 148/89; PULSE 64; RESP 18
[2017-06-23] MEDS ORDERED: NIFE30TA61 PO (16:14)
== END 2017-06-23 18:09 | disposition home or self-care (01) | DRG 765 ==
LOC: HOBED 22:18 → H2EA 06-19 01:46 → OBSVTOIN 06-19 17:54 → H1EA 06-21 16:50
PROVIDERS: ADMIT Obstetrics & Gynecology; ATTEND Obstetrics & Gynecology
PROC: 10D00Z1 Extraction of Products of Conception, Low, Open Approach (ICD-10-PCS; principal; 2017-06-20)
DX: O14.93 Unspecified pre-eclampsia, third trimester (principal); O36.5930 Maternal care for other known or suspected poor fetal growth, third trimester, not applicable or unspecified; O32.1XX0 Maternal care for breech presentation, not applicable or unspecified; O41.8X30 Other specified disorders of amniotic fluid and membranes, third trimester, not applicable or unspecified; Z3A.35 35 weeks gestation of pregnancy; Z37.0 Single live birth
CPT/HCPCS: 59025; 76816; 76819; 76820; 76821; 80053; 81001; 82570; 83735; 84156; 84157; 84550; 85025; 85027; 86850; 86900; 86901; J0702; J1100; J2274; J2405; J2590; J3010; J3475; J7120